=== PATIENT | male | born 1955 | race Caucasian/White ===

== ENCOUNTER 2017-03-08 14:28 | Inpatient (IN) | payer OTHER ==
--- NOTE | 2017-03-08 14:36 | CPEKG ---
Heart Rate: 62 RR Interval: 968 P-R Interval: 160 QRSD Interval: 100 QT Interval: 412 QTC Interval: 419 P [place]: 73 QRS [place]: 36 T Wave [place]: 33 EKG Severity - NORMAL ECG - EKG Impression: SINUS RHYTHM Electronically Signed By: María Meza 08-Mar-2017 18:41:41
--- NOTE | 2017-03-08 14:37 | EDPHY ---
H & P HPI/ROS: CHIEF COMPLAINT: Back and chest pain HISTORY OF PRESENT ILLNESS: The patient is a 61 y/o male complaining of severe waxing and waning acute back pain that is now radiating through to his chest. He has a history of an aortic dissection requiring emergency surgery in 2011, 5 years ago. This afternoon he was pulling weeds and developed sudden back pain. He attributed it to pulling a muscle initially, but it didn't improve with rest. When the pain started to move to his chest he decided to come to the ED as the pain feels similar to his prior aortic dissection. He denies weakness or numbness in any limbs. REVIEW OF SYSTEMS: A ten point review of systems was performed and is negative with the exception of the items mentioned in the HPI. Past medical history: Aortic dissection, ruptured appendicitis Past surgical history: Emergent aortic repair for dissection with repair of bicuspid aortic valve, large bowel resection following peritonitis from ruptured appendix, appendectomy Family history: noncontributory Social history: 1/2 pack per day cigarette smoker. Couple cocktails every night. No PCP. Takes care of grounds at [facility] Appearance: Alert. Uncomfortable appearing. Vital signs reviewed. 196 /96 right arm, 210/75 left arm Eyes: Pupils equal and round, no conjunctival injection, no discharge. Anicteric. ENT, Mouth: Mucous membranes are moist, no oropharyngeal erythema or edema. Neck: No lymphadenopathy, supple. No JVD. Respiratory: Lungs are clear to auscultation; no wheezes, rales, or rhonchi. Cardiovascular: Regular rate and rhythm; no murmur, rub, or gallop. Pulses: 2+ peripheral pulses (radial and femoral bilaterally. Gastrointestinal: Abdomen is soft and nontender, no masses or organomegaly, bowel sounds normal. Skin: Warm and dry, no rashes on exposed skin, normal color. Back: Nontender to palpation over the thoracolumbar spine. No CVAT. Extremities: No lower extremity edema, no calf tenderness or swelling. Neurological: Alert and oriented. Moving all four extremities easily and equally. Psychiatric: Normal affect. Constitutional: Initial Vital Signs Temperature (C) 36.5 C 03/08/17 14:38 Heart Rate 64 03/08/17 14:38 Respiratory Rate 16 03/08/17 14:38 Blood Pressure 196/96 H 03/08/17 14:38 O2 Sat (%) 100 03/08/17 14:38 O2 Delivery Mode Nasal Cannula O2 (L/minute) 2 Allergies/Adverse Reactions: No Known Allergies Allergy (Verified 01/12/12 21:31) Home Medications: Medication Instructions Recorded Herbals/Supplements -Info Only 1 each PO AD 01/13/12 Aspirin [Aspirin 81mg (*)] 81 mg PO DAILY 03/08/17 Ibuprofen [Motrin (*)] 200 - 600 mg PO Q6H PRN 03/08/17 Naproxen Sodium [Aleve 220 MG (*)] 220 mg PO DAILY PRN 03/08/17 Medical Decision Making - Diagnostics EKG Interpretation: EKG interpreted by me in [facility]. LVH, no acute ischemic changes, sinus. Imaging Results: Imaging Impressions Chest/Thorax CTA 03/08/17 14:48 Impression: 1. No pulmonary embolism. 2. Repeat dissection of the proximal descending thoracic aorta, now contributing to contrast opacification of the false lumen, nearly to the same extent as that of the true lumen. 3. Dissection now involves the entire abdominal and pelvic aorta, and extends on the right into the external iliac artery, on the left at least into the common iliac artery. 4. Dissection extends into the main right renal artery. 5. Left renal artery, SMA, and celiac trunk come off of the false lumen. 6. Accessory right renal artery and ANAY come off of both the true and the false lumen. 7. Increase in diameter of the proximal descending thoracic aorta and transverse the aortic arch. No aneurysmal dilatation of the abdominal and pelvic aorta at this time. 8. Dissection traverses across all 3 major vessels of the thoracic aortic arch without going directly into the branch vessels. This is unchanged from the prior study. Findings and recommendations discussed with Dr. María Meza at 1528 hours on March 08, 2017. Final report concurs with initial preliminary interpretation. Imaging: Discussed imaging studies w/ call or contact centre manager Radiologist, I viewed and interpreted images myself ED Course/Re-evaluation: IV established. Labs drawn. Patient placed on monitoring tech. CTA chest ordered despite creatinine of 1.5 given high risk for aortic dissection in this patient. Other diagnositic considerations at the time of his presentation include ACS, PE, pneumonia, pericarditis. 4mg IV morphine administered for pain. The 12 lead EKG was interpreted by myself. See hard copy and/or "tracemaster" electronic copy for interpretation. CTA reported to me by Dr. Clifton. I have reviewed the images. There is repeat dissection of proximal descending aorta with contrast filling the false lumen more than the true lumen. Dissection now involves entire abdominal and pelvic aorta. See CTA report for full details. Patient has been hypertensive since arrival. I spoke with Dr. Jiménez, CT surgery, about this patient's Type B aortic dissection. At this point in time he recommends BP control. Esmolol IV drip being titrated. HR has been in the 70s. Patient is receiving IV morphine for pain control, with some relief. He is being admitted to the ICU for BP control and additional treatment as needed. General Assignment Reporter on duty in ICU, Dr. Mc, aware. Hospitalist admitting. I spoke with Dr. Gasca about this patient. With esmolol, SBP still 180s--aiming for SBP closer to 120. Will continue to titrate. May need to add second agent. Patient underwent serial and frequent exams while in ED. Critical Care Time: This patient received one hour of critical care for type B aortic dissection and hypertensive emergency. He was at risk of vascular catastrophe, end organ damage secondary to hypertension. There was no midlevel involved in his care and no bedside procedures were performed. His care includes discussions with consultants, review of past records, review of labs and radiographic and other studies. - Data Points Laboratory Results: Laboratory Results 03/08/17 14:36 03/08/17 14:36 03/08/17 03/08/17 03/08/17 14:36 14:36 14:33 WBC 10.43 10^3/uL H 10^3/uL (3.80-9.50) RBC 4.22 10^6/uL L 10^6/uL (4.40-6.38) Hgb 14.9 g/dL g/dL (13.7-17.5) POC Hgb 15.3 gm/dL gm/dL (13.7-17.5) Hct 40.9 % % (40.0-51.0) POC Hct 45 % % (40-51) MCV 96.9 fL fL (81.5-99.8) MCH 35.3 pg H pg (27.9-34.1) MCHC 36.4 g/dL g/dL (32.4-36.7) RDW 12.9 % % (11.5-15.2) Plt Count 247 10^3/uL 10^3/uL (150-400) MPV 9.0 fL fL (8.7-11.7) Neut % (Auto) 71.9 % % (39.3-74.2) Lymph % (Auto) 18.9 % % (15.0-45.0) [place] % (Auto) 7.6 % % (4.5-13.0) Eos % (Auto) 0.7 % % (0.6-7.6) Baso % (Auto) 0.6 % % (0.3-1.7) Nucleat RBC Rel Count 0.0 % % (0.0-0.2) Absolute Neuts (auto) 7.51 10^3/uL H 10^3/uL (1.70-6.50) Absolute Lymphs (auto) 1.97 10^3/uL 10^3/uL (1.00-3.00) Absolute Monos (auto) 0.79 10^3/uL 10^3/uL (0.30-0.80) Absolute Eos (auto) 0.07 10^3/uL 10^3/uL (0.03-0.40) Absolute Basos (auto) 0.06 10^3/uL 10^3/uL (0.02-0.10) Absolute Nucleated RBC 0.00 10^3/uL 10^3/uL (0-0.01) Immature Gran % 0.3 % % (0.0-1.1) Immature Gran # 0.03 10^3/uL 10^3/uL (0.00-0.10) POC Sodium 141 mEq/L mEq/L (134-144) Sodium 135 mEq/L mEq/L (134-144) POC Potassium 3.1 mEq/L L mEq/L (3.3-5.0) Potassium 3.4 mEq/L L mEq/L (3.5-5.2) POC Chloride 104 mEq/L mEq/L (97-110) Chloride 104 mEq/L mEq/L (97-110) Carbon Dioxide 21 mEq/l L mEq/l (22-31) Anion Gap 10 mEq/L mEq/L (8-16) POC BUN 26 mg/dL H mg/dL (7-23) BUN 26 mg/dL H mg/dL (7-23) Creatinine 1.5 mg/dL H mg/dL (0.7-1.3) POC Creatinine 1.5 mg/dL H mg/dL (0.7-1.3) Estimated GFR 48 Glucose 102 mg/dL H mg/dL (70-100) POC Glucose 107 mg/dL H mg/dL (70-100) Calcium 10.0 mg/dL mg/dL (8.5-10.4) Troponin I < 0.012 ng/mL ng/mL (0.000-0.034) Medications Given: Esmolol HCl/Sodium Chloride (Brevibloc 10 Mg/Ml Premix) 250 mls @ 0 mls/hr IV CONT YSABEL; Titrate PRN Reason: Protocol Stop: 09/04/17 15:44 Last Admin: 03/08/17 19:00 Dose: 250 mls Ondansetron HCl (Zofran) 4 mg IVP Q4 PRN PRN Reason: Nausea/Vomiting, Can't Take PO Stop: 09/04/17 18:23 Last Admin: 03/08/17 18:39 Dose: 4 mg Discontinued Medications Morphine Sulfate (Morphine) 4 mg IVP EDNOW ONE Stop: 03/08/17 15:00 Last Admin: 03/08/17 15:03 Dose: 4 mg Morphine Sulfate (Morphine) 4 mg IVP EDNOW ONE Stop: 03/08/17 15:47 Last Admin: 03/08/17 15:50 Dose: 4 mg Morphine Sulfate (Morphine) 4 mg IVP EDNOW ONE Stop: 03/08/17 16:25 Last Admin: 03/08/17 16:32 Dose: 4 mg Morphine Sulfate (Morphine) 4 mg IVP EDNOW ONE Stop: 03/08/17 16:57 Last Admin: 03/08/17 17:01 Dose: 4 mg Morphine Sulfate (Morphine) 2 mg IVP ONCE ONE Stop: 03/08/17 17:46 Last Admin: 03/08/17 18:06 Dose: 2 mg Point of Care Test Results: 03/08/17 14:33 POC Sodium 141 POC Potassium 3.1 L POC Chloride 104 POC BUN 26 H POC Creatinine 1.5 H POC Glucose 107 H Departure - Departure Disposition: [facility] Inpatient Acute Clinical Impression: Hypertensive emergency, aortic dissection type b Condition: Critical Report Scribed for: María Meza Report Scribed by: Ana Hong Date of Report: 03/08/17 Time of Report: 14:56 Physician Review and Approval Statement: 03/08/17 14:37 Portions of this note were transcribed by the associate medical director. I, Dr. María Meza, personally performed the history, physical exam, and medical decision- making; and confirmed the accuracy of the information in the transcribed note.
[2017-03-08] MEDS ORDERED: IOPAMIDOL (ISOVUE 370) 100 ML BTL IV ONE (14:49)
[2017-03-08 15:20] LABS: % IMMATURE GRANULYOCYTES 0.3 % (0.0-1.1); ABSOLUTE IMMATURE GRANULOCYTES 0.03 10^3/uL (0.00-0.10); ADD DIFF? NO; ADD MORPH? NO; ADD SCAN? NO; ATYPICAL LYMPHOCYTE FLAG 0 (0-99); FRAGMENT RBC FLAG 0 (0-99); HEMATOCRIT 40.9 % (40.0-51.0); HEMOGLOBIN 14.9 g/dL (13.7-17.5); LEFT SHIFT FLG 0 (0-99); LIPEMIA HEMOLYSIS FLAG 90 (0-99); MEAN CELL HEMOGLOBIN 35.3 pg (27.9-34.1); MEAN CELL HEMOGLOBIN CONCENTR. 36.4 g/dL (32.4-36.7); MEAN CELL VOLUME 96.9 fL (81.5-99.8); PLATELET CLUMPS FLAG 10 (0-99); PLATELET COUNT 247 10^3/uL (150-400); RED BLOOD CELL COUNT 4.22 10^6/uL (4.40-6.38); RED CELL DISTRIBUTION WIDTH 12.9 % (11.5-15.2)
[2017-03-08 15:27] LABS: ANION GAP 10 mEq/L (8-16); CARBON DIOXIDE 21 mEq/l (22-31); CHLORIDE 104 mEq/L (97-110); CREATININE 1.5 mg/dL (0.7-1.3); GLOMERULAR FILTRATION RATE 48; GLUCOSE 102 mg/dL (70-100); POTASSIUM 3.4 mEq/L (3.5-5.2); SODIUM 135 mEq/L (134-144)
[2017-03-08 15:38] LABS: TROPONIN I < 0.012 ng/mL (0.000-0.034)
[2017-03-08] MEDS: ESMOLOL/NACL 250 ML IV SCH ×4 (16:32→23:32)
[2017-03-08] MEDS ORDERED: NITROPRUSSIDE SODIUM 50 MG in D5W 250 ML IV SCH (17:30)
[2017-03-08] MEDS ORDERED: ONDANSETRON 4 MG/2 ML VIAL ONE (18:00)
[2017-03-08] MEDS: ONDANSETRON 4 MG/2 ML VIAL IVP PRN (18:39)
--- NOTE | 2017-03-08 18:55 | GHP ---
[f rep st] HISTORY AND PHYSICAL DATE OF ADMISSION: 03/08/2017 CHIEF COMPLAINT: Chest and back pain. HISTORY OF PRESENT ILLNESS: This is a 61-year-old male, with history of type A aortic dissection in 2011, status post emergent interposition supracoronary artery graft repair of an acute type A aortic dissection, and 25 mm Ultra porcine bioprosthetic aortic valve replacement by Dr. Walsh in 2011, do ne at [facility]. The patient presented to the emergency department today with acute onset of chest pain described as a 5/10, dull, constant, burning, ache in the middle of his chest th at radiated to his back and "his loins." It was associated with some shortness of breath. The patie nt does smoke. He appears to have been discharged from [facility] on January of 2012 on metoprolol, but tells me he has not been taking any blood pressure medications. PAST MEDICAL HISTORY: 1. Acute type A aortic dissection and repair of a bicuspid aortic valve by Dr. Walsh in 2011. 2. 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 HOME MEDICATIONS: Reviewed. Refer to [facility] for details. ALLERGIES: No known drug allergies. SOCIAL HISTORY: The patient smokes half a pack a day. He drinks alcohol occasionally. FAMILY HISTORY: Reviewed and noncontributory. REVIEW OF SYSTEMS: Comprehensive 10-point review of systems was done and is negative except for as m entioned in the HPI. PHYSICAL EXAMINATION: VITAL SIGNS: Blood pressure on initial presentation was 196/96, blood pressur e currently 159/62, heart rate 68, respiratory rate 14, O2 saturation 95% on 2 L. Temperature afebri le. GENERAL: No acute distress. HEAD: Normocephalic, atraumatic. EYES: PERRLA. Sclerae anicter ic. MOUTH: Moist mucous membranes. NECK: Supple. No lymphadenopathy. CARDIOVASCULAR: S1-S2. N o JVD. No lower extremity edema. PULMONARY: Lungs are clear. No wheezes, rales, or rhonchi. ABDO MEN: Soft, nontender, nondistended. No guarding or rebound tenderness. Normoactive bowel sounds. EXTREMITIES: No clubbing or cyanosis. Feet are slightly cool to touch. NEURO: Cranial nerves 2-12 grossly intact. No focal motor or sensory deficits. SKIN: Clear. No rashes. DIAGNOSTICS: CT angio of the chest, which I reviewed, shows a type B dissection of the proximal desc ending thoracic aorta with dissection involving the entire abdominal and pelvic aorta, extends on the right into the external iliac artery on the left, at least into the common iliac artery, the left re nal artery, SMA, celiac trunk, off the false lumen. The dissection extends into the right main renal artery. Please refer to report for full details. WBC is 10.43, hemoglobin 14.9, hematocrit 40.9, platelets 247. Sodium 135, potassium 3.4, chloride 1 04, CO2 21, BUN 26, creatinine 1.5, glucose 102, calcium 10. Troponin was less than 0.012. EKG, which I visualized and personally interpreted, shows sinus rhythm, rate 62 beats per minute, cortney e high voltages consistent with likely underlying LVH. ASSESSMENT: This is a 61-year-old male, with history of type A aortic dissection, status post repair in 2011, presenting with: 1. Type B repeat dissection of the proximal descending thoracic aorta. 2. Hypertensive emergency. 3. Acute kidney injury, which is concerning given the patient's compromised vascular supply of the k idney given above in the setting of recent contrast load. 4. History of tobacco use. 5. Mild hypokalemia. PLAN: 1. I discussed the case with the on-call cardiothoracic surgeon, Dr. Jiménez, who has reviewed the chandrika allen's imaging and does not believe him to be a good surgical candidate. He has recommended medical management. See below. 2. The patient will be admitted to the intensive care unit where we will treat his hypertension with esmolol drip and nitroprusside drip to a goal of systolic blood pressure of around 120 and a heart r ate of around 60. 3. Pain control with morphine as needed. 4. Monitor renal function. 5. Tobacco cessation. 6. We will add a lipid panel for the morning. 7. The patient requests to be full code status. Dr. Jiménez will see the patient in the morning for formal consultation. I also have a call in to Dr. 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 /[id number]/MODL
[2017-03-08] MEDS: POTASSIUM Cl (KCl) 20 MEQ in 1/2 NS 1,000 ML IV SCH (19:03)
[2017-03-08] MEDS: PROMETHAZINE HCL 25 MG/ML INJ IVP PRN (19:21)
[2017-03-09 05:51] LABS: % IMMATURE GRANULYOCYTES 0.4 % (0.0-1.1); ABSOLUTE IMMATURE GRANULOCYTES 0.04 10^3/uL (0.00-0.10); ADD DIFF? NO; ADD MORPH? NO; ADD SCAN? NO; ATYPICAL LYMPHOCYTE FLAG 0 (0-99); FRAGMENT RBC FLAG 0 (0-99); HEMOGLOBIN 12.3 g/dL (13.7-17.5); LEFT SHIFT FLG 0 (0-99); LIPEMIA HEMOLYSIS FLAG 90 (0-99); MEAN CELL HEMOGLOBIN 35.2 pg (27.9-34.1); MEAN CELL HEMOGLOBIN CONCENTR. 35.1 g/dL (32.4-36.7); MEAN CELL VOLUME 100.3 fL (81.5-99.8); MEAN PLATELET VOLUME 9.3 fL (8.7-11.7); PLATELET CLUMPS FLAG 20 (0-99); PLATELET COUNT 172 10^3/uL (150-400); RED BLOOD CELL COUNT 3.49 10^6/uL (4.40-6.38); RED CELL DISTRIBUTION WIDTH 13.2 % (11.5-15.2)
[2017-03-09] MEDS: POTASSIUM Cl (KCl) 20 MEQ in 1/2 NS 1,000 ML IV SCH (05:52)
[2017-03-09 07:20] LABS: ALANINE AMINOTRANSFERASE 29 IU/L (21-72); ALBUMIN 2.8 g/dL (3.5-5.0); ALKALINE PHOSPHATASE 39 IU/L (38-126); ANION GAP 5 mEq/L (8-16); ASPARTATE AMINOTRANSFERASE 22 IU/L (17-59); BILIRUBIN,TOTAL 0.9 mg/dL (0.1-1.4); CARBON DIOXIDE 20 mEq/l (22-31); CHLORIDE 107 mEq/L (97-110); CREATININE 1.3 mg/dL (0.7-1.3); GLOMERULAR FILTRATION RATE 57; GLUCOSE 97 mg/dL (70-100); POTASSIUM 4.2 mEq/L (3.5-5.2); SODIUM 132 mEq/L (134-144); TOTAL PROTEIN 5.5 g/dL (6.3-8.2)
[2017-03-09] MEDS ORDERED: METOPROLOL TARTRATE 25 MG TAB PO SCH (09:15)
[2017-03-09] MEDS: PROMETHAZINE HCL 25 MG/ML INJ IVP PRN (09:48)
--- NOTE | 2017-03-09 09:48 | GCON ---
[f rep st] CONSULTATION DATE OF CONSULTATION: 03/08/2017 HISTORY OF PRESENT ILLNESS: The patient is a 61-year-old male with a history of a type A aortic diss ection in January of 2012 that required surgical graft placement, as well as aortic valve replacement for a bicuspid valve. He did fairly well during that initial surgery, although there was some postop erative bleeding that required return to the OR. He subsequently left the hospital after about 7 day s and has not had significant followup since that time, including lack of medications. Today, he was at work and had sudden onset of tearing pain in his back, thought it was some muscle spasm, but when he discussed it with his , they decided to come to the emergency room. There, he was found to h ave a very large type B descending aortic dissection running all the way down to the external iliac a rteries, with a fairly large false lumen and also involving the renal arteries. In the emergency dep artment, he was given 16 mg of morphine over a 2-hour period in 4 mg increments, which did reduce his pain from about an 8/10 to a 5/10 by the time he arrived in the emergency department. He was starte d on an esmolol drip but was markedly hypertensive on arrival in the ICU, was given additional morphi ne, as well as a Nipride drip for better blood pressure control. There was 1 episode of emesis while in the ICU. He was given Zofran for this at the time of my exam. REVIEW OF SYSTEMS: Otherwise negative. PAST MEDICAL HISTORY: Includes: 1. The dissection, as described above. 2. An episode of peritonitis many years ago related to a ruptured appendix. 3. 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 4. Postoperative bleeding, as described above. PAST SURGICAL HISTORY: Includes a remote bowel resection, appendectomy, dissection repair, aortic va lve replacement. SOCIAL HISTORY: Continues to smoke at a low level, with occasional alcohol but no alcohol-related il lnesses. FAMILY HISTORY: Noncontributory. MEDICATIONS: In the ICU include esmolol, morphine, Zofran, and Nipride. PHYSICAL EXAMINATION: VITAL SIGNS: He was initially found to have a blood pressure of 210/75, with a heart rate of about 65, respirations 14, oxygen saturation 99% on 2 L. GENERAL: He was awake, salome rt, in no apparent distress, able to speak in full sentences without using accessory muscles for fer thing. HEENT: Pupils were equally round, reactive to light, nonicteric and noninjected. Mucous mem branes were moist, without erythema or exudate. NECK: Supple, without adenopathy or jugular vein di stention. LUNGS: Breath sounds were distant, but clear to auscultation bilaterally, without wheezes , rubs or rales. HEART: Regular rate and rhythm, with a 2/6 systolic ejection murmur. ABDOMEN: Fi rm, but soft, nontender, nondistended, with no guarding, no rebound. Hypoactive bowel tones. EXTREM ITIES: No clubbing, cyanosis, or edema, and his toes and fingers were warm and dry, with no evidence of cyanosis or ischemia. NEUROLOGIC: Nonfocal, including cranial nerves, deep tendon reflexes. SK IN: Warm and dry, without evidence of rash. LABORATORY DATA: Includes a white count of 10.4, hematocrit of 40.9, platelets of 247. Basic metabo lic panel shows sodium of 135, with a potassium of 3.4, chloride 104, BUN 26, creatinine 1.5, glucose 102. Troponin was negative. ASSESSMENT/PLAN: 1. Type B descending aortic dissection, which appears to be acute on chronic, possibly related to me dical noncompliance. Dr. Yen Jiménez from CT Surgery has been notified of this and will see the reddy ent in the morning. Currently, the major focus of attention is on improved blood pressure control, a nd the Nipride drip was just recently started. We will continue also with pain control, using morphi ne. He may need a PROGRAM DIRECTOR CABLE TELEVISION for better control. We will have to watch for over sedation. 2. Acute kidney injury. His creatinine at 1.5, although not terribly high in and of itself, does re present a substantial change from his baseline at 0.9, in addition to the fact that he is not a very large man, and I think there is great concern here. A Ricketts catheter should be placed. IV fluids sh ould be begun and close observation of urinary output. 3. Hypertension, as described above, using the esmolol drip. Nipride is an additional agent that may be useful. A total of 35 minutes of critical care time was required for this patient with serious illness, with incredible risk for morbidity and mortality. /[id number]/MODL
[2017-03-09] MEDS ORDERED: BISACODYL 10 MG SUPP PR PRN (11:56)
[2017-03-09] MEDS ORDERED: LACTULOSE 20 GM/30 ML UDCUP PO PRN (11:56)
[2017-03-09] MEDS ORDERED: POLYETHYLENE GLYCOL 3350 17 GM PKT PO PRN (11:56)
[2017-03-09] MEDS ORDERED: MAGNESIUM HYDROXIDE 30 ML UDCUP PO PRN (11:56)
--- NOTE | 2017-03-09 13:45 | PDINTPN ---
Team Otr Truck Driver Progress Note Assessment/Plan: Assessment/plan: 61 M with type A aortic dissection in 2012 treated with tissue AVR for bicuspid valve and ascending aortic graft. He had poor followup and no meds then developed sudden onset CP so came to ED at insistence of family and found to have type B descending aortic dissection involving renal arteries. He was initially started on an esmolol drip followed by nipride to control BP. He was given 16 mg IV morphine in the ED over 2 hours with minimal effect on pain control, but eventually this was achieved. * Aortic dissection- he seems anxious for dc and mildly unrealistic about the seriousness of the situation. We discussed this at bedside today at length with Dr. Preciado as well. Started metoprolol at 25 bid to start and plan to maximize this before adding additional agents. No surgical intervention required. Pain control is adequate * HTN- as described above * CAROLYN- improved creatinine overnight * Subjective: stable overnight with improved pain control and BP control. Esmolol dc'd since bp goal met. Objective: Vital Signs Temp Pulse Resp BP Pulse Ox 37.1 C 72 14 124/62 H 93 03/08/17 20:00 03/09/17 12:00 03/09/17 12:00 03/09/17 12:00 03/09/17 12:00 Laboratory Results 03/09/17 05:30 03/09/17 05:30 03/08/17 03/09/17 03/10/17 05:59 05:59 05:59 Intake Total 2392 960 Output Total 260 375 Balance 2132 585 Physical Exam - Physical Exam General Appearance: WD/WN, alert, no apparent distress EENT: PERRL/EOMI Neck: supple Respiratory: lungs clear, normal breath sounds, No respiratory distress Cardiac/Chest: regular rate, rhythm, No edema Abdomen: non-tender, soft, No distended Skin: normal color, warm/dry Lymphatic: no adenopathy Extremities: No pedal edema Neuro/Psych: alert, normal mood/affect, oriented x 3 ICD10 Worksheet Patient Problems: Problems Problem Status Onset Hypertensive emergency Acute Dissection of thoracic aorta Active Replacement of aortic valve Active
[2017-03-09] MEDS: NS 1,000 ML IV SCH ×2 (13:47→19:49)
[2017-03-09] MEDS: hydrALAZINE 20 MG/ML VIAL IVP PRN ×2 (13:47→20:10)
--- NOTE | 2017-03-09 14:14 | GCON ---
[f rep st] CONSULTATION INITIAL CONSULTATION DATE OF CONSULTATION: 03/09/2017 CONSULTING SERVICE: Cardiothoracic Surgery. REASON FOR CONSULTATION: Type B aortic dissection. 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 He did well after that; however, he was lost to [facility] and did not visit any physicians in the interim. He presented to the emergency department ye ster afternoon after being outside doing gardening work and having some mild chest pain and discom fort. Initially, he thought this was related to a muscle pull and, therefore, tried different maneuv ers to try and relieve the pain, but when this did not accomplish anything he presented to the emerge ncy department. He says the pain was in the middle of his chest, but mostly on the back side between his shoulder blades and extending down toward the abdomen. Given his complaints, he did undergo a C T scan of the chest which revealed an extensive type B aortic dissection. This was compared to his p revious scans in 2011, at which time he was noted to have a proximal descending thoracic aortic disse ction; however, this did have significant progression and this portion of the aorta did have some marlin nges in character of the dissection. On presentation, his blood pressure was anywhere from 190 to ov er 200 systolic. He was admitted to the ICU afterward and started on blood pressure medications as w ell as anti-impulse therapy to bring down his blood pressure. Overnight, those medications were able to be weaned off. Currently, the patient notes that he feels better and has some mild discomfort, m ostly in the epigastric and lower chest region along the back side. Prior to this, he denies any oth er issues in terms of nausea, vomiting, fevers, chills, shortness of breath, or chest pain. He is a fairly active person, working outdoors constantly, and notes that he has never had any other issues. MEDICAL HISTORY: Denies. SURGICAL HISTORY: 1. Type A aortic dissection repair in 2011 with replacement of his aortic valve with a bioprosthetic valve. 2. Ruptured appendicitis treated with appendectomy and bowel resection. ALLERGIES: No known drug allergies. MEDICATIONS: Denies. SOCIAL HISTORY: The patient is a current everyday smoker and smokes anywhere from half pack to 1 pac k per day, and he has been doing this for the past 45 years. He does drink a fair amount of alcohol, roughly 3-4 drinks each evening with dinner. He is not . He works doing gardening work. FAMILY HISTORY: Noncontributory. REVIEW OF SYSTEMS: A 12-point review of systems is negative other than noted in the HPI. PHYSICAL EXAMINATION: GENERAL: The patient is awake, alert, and oriented x3. He is in no acute dis tress. HEENT: Normocephalic, atraumatic. No evidence of icterus. No JVD. No tracheal deviation. LUNGS: Clear to auscultation bilaterally. HEART: Regular rate and rhythm with a 3/6 murmur. ABDO MEN: Soft, nontender, nondistended. EXTREMITIES: Warm and well perfused, without any edema; he acuña s have 2+ equal radial pulses, as well as dorsalis pedis pulses. LABORATORY VALUES: CBC: WBC 10.48, hemoglobin 12.3, hematocrit 35.0, platelet count of 172. Chemis try: Sodium of 132, potassium 4.2, chloride 107, carbon dioxide 20, BUN 28, creatinine 1.3, which is down from 1.5 on admission yesterday, glucose 97, calcium 8.0. Total bilirubin 0.9, AST 22, ALT 29, alkaline phosphatase 39. Troponin less than 0.012. Total protein 5.5. Albumin 2.8. IMAGING STUDIES: CT scan of the chest, abdomen, and pelvis, which I have reviewed, shows no pulmonar y embolism. There is dissection of the proximal descending thoracic aorta with almost equal opacific ation of the true and the false lumen. The proximal descending thoracic aorta is enlarged at 4.5 cm versus 3.4 cm previously. The dissection begins just distal to the ascending aortic repair and exten ds distally all the way down into the right common iliac artery. There is good opacification with co ntrast of all mesenteric vessels, as well as the renal arteries. ASSESSMENT AND PLAN: The patient is a 61-year-old male who is status post emergent type A aortic dis section repair in 2011, who was lost to followup subsequent to that, but now presents with changes in his type B dissection. There is mild aneurysmal component of the proximal descending thoracic aorta ; however, this does not meet any surgical criteria at the current time. In addition, there is no co mpromise to his mesenteric vessels or renal arteries and, therefore, he should be treated medically f or this dissection. Medical therapy entails aggressive blood pressure and heart rate control, ideall y with a blood pressure around or less than 120 systolic, as well as a heart rate around 60 to 70 if possible. I would recommend transitioning to p.o. medications for blood pressure control. He will n eed continued medical management of this unless a complication were to arise in terms of poor distal perfusion of any of his major vessels as a result of this dissection. I did have an extensive discus coy with the patient, as well as 2 of his friends that were at the bedside and his sister over the p megan, and recommended that he need routine care with a physician, especially a primary care physician to ensure adequate blood pressure and heart rate control, especially given these new findings. In a ddition, he needs routine cardiology followup given his aortic valve replacement that he has, and thi s has not been done as of yet since his surgery in 2011. Lastly, I recommended if he is able to be t ransitioned to p.o. medications adequately, he may be able to be discharged in a few days' time once adequate blood pressure and heart rate control are achieved; however, he would need a repeat CT scan in about 1 month's time to ensure no significant changes in his dissection. Afterward, he would need periodic monitoring of this. For the current time, however, I would like to get an echocardiogram s mehdi he has not had one since his valve replacement, to ensure there are no issues with this, and the primary team will work on blood pressure control. /[id number]/MODL
--- NOTE | 2017-03-09 14:38 | ASMTCMCOM ---
CM Note CM Note Notes: Patient admitted for changes in his type B aortic dissection. He is being followed by cardiology who recommend medication changes (patient has historically been non-compliant). Patient is eager to d/c and has been cleared by Pt/OT. CM available for any discharge needs. Date Signed: 03/09/2017 02:38 PM Electronically Signed By:Reina Lyons RN
[2017-03-09] MEDS ORDERED: METOPROLOL TARTRATE 50 MG TAB PO SCH (15:15)
[2017-03-09] MEDS: oxyCODONE IR 5 MG TAB PO PRN ×3 (15:18→23:59)
--- NOTE | 2017-03-09 15:19 | HOSPPROG ---
Hospitalist Progress Note Assessment/Plan: * Aortic dissection - type B -medical management -needs aggressive BP control -goal HR 60-70, SPB < 120 -increase metoprolol -off drips - start prn IV hydralazine -likely need start alternative agent such as lisinopril * Previous ascending aortic aneurysm s/p surgical repair 2011 -new dissection starts just distal to previous graft repair -patient has not followed up with physicians since then * HTN emergency -likely due to non-compliance with outpatient follow-up -off drips, BP management as above * Bicuspid aortic valve s/p porcine AVR -f/u ECHO pending * ARF - continue IVF -per CT surgery renal arteries okay with good contrast seen * Short gut syndrome Subjective: Still with CP requiring IV morphine Objective: Vital Signs Temp Pulse Resp BP Pulse Ox 37.1 C 74 14 141/74 H 99 03/08/17 20:00 03/09/17 15:00 03/09/17 15:00 03/09/17 15:00 03/09/17 15:00 Laboratory Results 03/09/17 05:30 03/09/17 05:30 03/08/17 03/09/17 03/10/17 05:59 05:59 05:59 Intake Total 2392 960 Output Total 260 375 Balance 2132 585 Using frequent IV morphine for pain control Case d/w Dr. Mc regarding plan of care tele - NSR CTA reviewed - extensive descending acute dissection - Physical Exam Constitutional: no apparent distress, appears nourished, not in pain Cardiovascular: regular rate and rhythym, no murmur, rub, or gallop Respiratory: no respiratory distress, no rales or rhonchi, clear to auscultation Gastrointestinal: normoactive bowel sounds, soft, non-tender abdomen, no palpable masses Skin: no rashes or abrasions, no fluctuance, no induration Neurologic: AAOx3, sensation intact bilaterally Psychiatric: interacting appropriately, not anxious, not encephalopathic, thought process linear ICD10 Worksheet Patient Problems: Problems Problem Status Onset Hypertensive emergency Acute Dissection of thoracic aorta Active Replacement of aortic valve Active
--- NOTE | 2017-03-09 18:15 | ECHO ---
[email or web address] [address] [address] Main: [phone] Fax: Transthoracic Echocardiogram Name: ABDON JOHNSON MR#: [id number] Study Date: 03/09/2017 Study Time: 10:00 AM Date of : 1955 Age: 61 year(s) Height: 167.6 cm (66 in.) Weight: 70.31 kg (155 lb.) BSA: 1.79 m2 Gender: Male Examination: Echo Indication: prior type A dissection and hx AVR #25 Medtronic porcine bioprosthesis Image Quality: Adequate Contrast: Requested by: Pita Velazquez BP: 145 mmHg/71 mmHg Heart Rate: Rhythm: Normal sinus rhythm Indication: prior type A dissection and hx AVR #25 Medtronic porcine bioprosthesis Procedure Staff Burlap Man: Kaycee Albarran Reading Physician: Macy Irving Conclusions: Normal size left ventricle. Normal global systolic LV function (EF 63 %). All scored wall segments are normal. Mildly dilated right ventricle. Normal RV function. The left atrium is mildly to moderately dilated. The right atrium is moderately dilated. Mild mitral valve regurgitation is present. The aortic valve is a bioprosthesis. . This is a #25AVR Medtronic Ultra porcine bioprosthesis. There is mild to moderate eccentric aortic insufficiency. The leaflets are not well visualized. Prosthetic aortic valve gradients are within normal limits. Moderate tricuspid regurgitation is present. The pulmonary artery pressure is normal. There is dissection of the ascending aorta. Intimal flap noted in the ascending aorta, aortic arch and abdominal aorta. Compared with MONCHO of 01/2012 the aortic valve has been replaced. Possible dissection seen in ascending aorta Measurements: Chambers Valvular Assessment AV/MV Valvular Assessment TV/PV Normal Normal Normal Name Value Range Name Value Range Name Value Range IVSd (2D): 1.2 cm (0.6 cm-1.1 AV Vmax: 2.74 m/s (1 m/s-1.7 TR Vmax: 2.64 mm/s ( - ) cm) m/s) TR PGmax: 28 mmHg ( - ) LVDd (2D): 4.4 cm (4.2 cm-5.9 AV maxP mmHg ( - ) syst. PAP: 38 mmHg ( - ) cm) AV meanP mmHg ( - ) PV Vmax: 0.86 cm/s (0.6 m/s-0.9 LVDs (2D): 2.6 cm (2.1 cm-4 AR (PHT): 523 ms ( - ) m/s) cm) MV E Vmax: 0.58 cm/s ( - ) PV PGmax: 3 mmHg ( - ) LVPWd (2D): 1.0 cm (0.6 cm-1 MV A Vmax: 0.71 cm/s ( - ) cm) MV E/A: 0.82 ( - ) Patient: ABDON JOHNSON Study Date: 03/09/2017 Page 1 of 3 10:00 AM LVEF (BP): 63 % (>=55 %) RVDd(2D): 4.2 cm (1.9 cm-3.8 cmmm) Continued Measurements: Chambers Valvular Assessment AV/MV Valvular Assessment TV/PV Name Value Name Value Name Value LA Area: 21.0 cm2 MV DecTime: 236 CVP (est.): 10 LA Volume: 78 ml MV E' Septal: 0.09 m/s LA Volume Index: 43.6 ml/m2 MV E/E' Septal: 6.60 TAPSE: 2.6 cm MV E/E' Lateral: 5.80 RA Area: 20.0 cm2 AR Vmax: 4.54 cm/s Additional Vessels Name Value Ao Ascendin.4 cm Findings: Left Ventricle: Normal size left ventricle. Normal global systolic LV function (EF 63 %). All scored wall segments are normal. Right Ventricle: Mildly dilated right ventricle. Normal RV function. Left Atrium: The left atrium is mildly to moderately dilated. Right Atrium: The right atrium is moderately dilated. Mitral Valve: There is mild thickening of the mitral valve leaflets. Mild mitral valve regurgitation is present. Aortic Valve: The aortic valve is a bioprosthesis. . This is a #25AVR Medtronic Ultra porcine bioprosthesis. There is mild to moderate eccentric aortic insufficiency. The leaflets are not well visualized.Prosthetic aortic valve gradients are within normal limits. Tricuspid Valve: The tricuspid valve is normal in appearance and function. Moderate tricuspid regurgitation is present. The pulmonary artery pressure is normal. Pulmonic Valve: The pulmonic valve is normal in appearance and function. Trivial pulmonic valve regurgitation. Aorta: There is dissection of the ascending aorta. Intimal flap noted in the ascending aorta, aortic arch and abdominal aorta. Pericardium: No pericardial effusion. (No Signature Object) Wall Motion Scores Patient: ABDON JOHNSON Study Date: 03/09/2017 Page 2 of 3 10:00 AM Patient: ABDON JOHNSON Study Date: 03/09/2017 Page 3 of 3 10:00 AM [id number]
[2017-03-09] MEDS: SENNOSIDES/DOCUSATE SODIUM TAB PO SCH (19:25)
[2017-03-09] MEDS ORDERED: METOPROLOL TARTRATE 25 MG TAB PO ONE (22:27)
[2017-03-09] MEDS: ACETAMINOPHEN 325 MG TAB PO PRN (23:59)
[2017-03-10] MEDS: hydrALAZINE 20 MG/ML VIAL IVP PRN (03:31)
[2017-03-10 04:16] LABS: % IMMATURE GRANULYOCYTES 0.4 % (0.0-1.1); ABSOLUTE IMMATURE GRANULOCYTES 0.04 10^3/uL (0.00-0.10); ADD DIFF? NO; ADD MORPH? NO; ADD SCAN? NO; ATYPICAL LYMPHOCYTE FLAG 0 (0-99); FRAGMENT RBC FLAG 0 (0-99); HEMATOCRIT 40.2 % (40.0-51.0); HEMOGLOBIN 13.8 g/dL (13.7-17.5); LEFT SHIFT FLG 0 (0-99); LIPEMIA HEMOLYSIS FLAG 90 (0-99); MEAN CELL HEMOGLOBIN 35.2 pg (27.9-34.1); MEAN CELL HEMOGLOBIN CONCENTR. 34.3 g/dL (32.4-36.7); MEAN CELL VOLUME 102.6 fL (81.5-99.8); PLATELET CLUMPS FLAG 0 (0-99); PLATELET COUNT 179 10^3/uL (150-400); RED BLOOD CELL COUNT 3.92 10^6/uL (4.40-6.38); RED CELL DISTRIBUTION WIDTH 13.3 % (11.5-15.2)
[2017-03-10 04:44] LABS: ANION GAP 8 mEq/L (8-16); CALCIUM 8.6 mg/dL (8.5-10.4); CARBON DIOXIDE 20 mEq/l (22-31); CHLORIDE 108 mEq/L (97-110); CREATININE 1.1 mg/dL (0.7-1.3); GLOMERULAR FILTRATION RATE > 60; GLUCOSE 82 mg/dL (70-100); POTASSIUM 3.6 mEq/L (3.5-5.2); SODIUM 136 mEq/L (134-144)
[2017-03-10] MEDS: ACETAMINOPHEN 325 MG TAB PO PRN (06:59)
[2017-03-10] MEDS: oxyCODONE IR 5 MG TAB PO PRN ×4 (06:59→21:22)
[2017-03-10] MEDS: METOPROLOL TARTRATE 50 MG TAB PO SCH ×2 (09:07→20:28)
[2017-03-10] MEDS: SENNOSIDES/DOCUSATE SODIUM TAB PO SCH ×2 (09:07→20:28)
--- NOTE | 2017-03-10 09:56 | HOSPPROG ---
Hospitalist Progress Note Assessment/Plan: # type B aortic dissection - non-surgical per CT surgery - aggressive BP control (SBP<120, HR 60-17) and tobacco cessation - cont metop 75 bid, start norvasc today - cont hydralazine IV prn # previous asc aortic dissection s/p surgical repair in 2011 - no medical f/u since then # htn emergency - off gtt's, transitioning to PO meds # bicuspid aortic valve s/p porcine AVR -f/u ECHO pending # CAROLYN - resolved, no renal artery compromise # short gut syndrome Subjective: chest pain better Objective: Vital Signs Temp Pulse Resp BP Pulse Ox 37 C 72 16 125/71 H 95 03/10/17 07:00 03/10/17 09:00 03/10/17 09:00 03/10/17 09:00 03/10/17 09:00 Laboratory Results 03/10/17 04:05 03/10/17 04:05 03/09/17 03/10/17 03/11/17 05:59 05:59 05:59 Intake Total 2392 3998 Output Total 260 1250 Balance [address] reviewed - Physical Exam Constitutional: no apparent distress, appears nourished Cardiovascular: regular rate and rhythym, systolic murmur Respiratory: no respiratory distress, no rales or rhonchi, clear to auscultation Gastrointestinal: normoactive bowel sounds, soft, non-tender abdomen, no palpable masses ICD10 Worksheet Patient Problems: Problems Problem Status Onset Hypertensive emergency Acute Dissection of thoracic aorta Active Replacement of aortic valve Active
[2017-03-10] MEDS: amLODIPine BESYLATE 5 MG TAB PO SCH (10:00)
[2017-03-10] MEDS ORDERED: ENALAPRILAT DIHYDRATE 1.25 MG/ML VIAL IVP PRN (11:22)
[2017-03-10] MEDS ORDERED: IOPAMIDOL (ISOVUE 370) 100 ML BTL IV ONE (12:45)
--- NOTE | 2017-03-10 13:38 | PDINTPN ---
Cleaning Maid Progress Note Assessment/Plan: Assessment/plan: 61 M with type A aortic dissection in 2011 treated with tissue AVR for bicuspid valve and ascending aortic graft. He had poor followup and no meds then developed sudden onset CP so came to ED at insistence of family and found to have type B descending aortic dissection involving renal arteries. He was initially started on an esmolol drip followed by nipride to control BP. He was given 16 mg IV morphine in the ED over 2 hours with minimal effect on pain control, but eventually this was achieved. * Aortic dissection- type B. Started metoprolol 03/09 and uptitrated to 75 BID. Added Norvasc today, but would avoid hydralazine since it can increase shear stress. Repeat CT pending. * HTN- as described above * CAROLYN- improved creatinine overnight * OK for floor. DC soon? Subjective: feels well with much less pain Objective: Vital Signs Temp Pulse Resp BP Pulse Ox 37 C 72 16 125/71 H 95 03/10/17 07:00 03/10/17 09:00 03/10/17 09:00 03/10/17 09:00 03/10/17 09:00 Laboratory Results 03/10/17 04:05 03/10/17 04:05 03/09/17 03/10/17 03/11/17 05:59 05:59 05:59 Intake Total 2392 3998 Output Total 260 1250 Balance 2132 2748 Physical Exam - Physical Exam General Appearance: WD/WN, alert, no apparent distress EENT: PERRL/EOMI Neck: supple Respiratory: lungs clear, normal breath sounds, No respiratory distress Cardiac/Chest: regular rate, rhythm, No edema Abdomen: non-tender, soft, No pulsatile mass, No distended Skin: normal color, warm/dry Lymphatic: no adenopathy Extremities: No pedal edema Neuro/Psych: alert, normal mood/affect, oriented x 3 ICD10 Worksheet Patient Problems: Problems Problem Status Onset Hypertensive emergency Acute Dissection of thoracic aorta Active Replacement of aortic valve Active
[2017-03-10] MEDS: niCARdipine/NACL 200 ML IV SCH ×2 (15:57→20:27)
[2017-03-10] MEDS ORDERED: NS 1,000 ML IV SCH (16:30)
[2017-03-11] MEDS: oxyCODONE IR 5 MG TAB PO PRN ×4 (02:15→22:33)
[2017-03-11 07:46] LABS: ANION GAP 8 mEq/L (8-16); CALCIUM 8.7 mg/dL (8.5-10.4); CARBON DIOXIDE 24 mEq/l (22-31); CHLORIDE 104 mEq/L (97-110); CREATININE 0.9 mg/dL (0.7-1.3); GLOMERULAR FILTRATION RATE > 60; GLUCOSE 90 mg/dL (70-100); POTASSIUM 3.7 mEq/L (3.5-5.2); SODIUM 136 mEq/L (134-144)
[2017-03-11] MEDS: amLODIPine BESYLATE 5 MG TAB PO SCH (08:41)
[2017-03-11] MEDS: ONDANSETRON 4 MG/2 ML VIAL IVP PRN ×3 (08:41→21:32)
[2017-03-11] MEDS: SENNOSIDES/DOCUSATE SODIUM TAB PO SCH ×2 (08:42→21:14)
[2017-03-11] MEDS: METOPROLOL TARTRATE 50 MG TAB PO SCH ×2 (08:42→21:14)
--- NOTE | 2017-03-11 11:12 | HOSPPROG ---
Hospitalist Progress Note Assessment/Plan: # type B aortic dissection - medical management recommended by Dr Clifton and Hank - aggressive BP control (SBP<120, HR 60-17) and tobacco cessation - cont metop 75 bid, increase norvasc today, attempt to wean cardene - concern for R renal artery being perfused off false lumen with decreased enhancement today # previous asc aortic dissection s/p surgical repair in 2011 - no medical f/u since then # htn emergency - wean cardene as needed # bicuspid aortic valve s/p porcine AVR - echo with mild/mod eccentric aortic valve insufficiency with normal gradients # CAROLYN - resolved - follow closely with renal artery compromise # short gut syndrome Subjective: had worsening pain yesterday - better today Objective: Vital Signs Temp Pulse Resp BP Pulse Ox 36.8 C 63 22 H 120/76 92 03/11/17 07:00 03/11/17 09:00 03/11/17 09:00 03/11/17 09:00 03/11/17 05:00 Laboratory Results 03/10/17 04:05 03/11/17 06:45 03/10/17 03/11/17 03/12/17 05:59 05:59 05:59 Intake Total 3998 496 Output Total 1250 1000 Balance 2748 -504 high risk diagnosis - Physical Exam Constitutional: no apparent distress, appears nourished Cardiovascular: regular rate and rhythym, systolic murmur, No irregularly irregular, No diastolic murmur Respiratory: no respiratory distress, no rales or rhonchi, clear to auscultation Gastrointestinal: normoactive bowel sounds, other (soft, mildly TTP), No guarding, No rebound ICD10 Worksheet Patient Problems: Problems Problem Status Onset Dissection of thoracic aorta Active Replacement of aortic valve Active Hypertensive emergency Acute
[2017-03-11] MEDS: niCARdipine/NACL 200 ML IV SCH ×2 (14:25→21:15)
[2017-03-11] MEDS ORDERED: amLODIPine BESYLATE 5 MG TAB PO ONE (14:45)
--- NOTE | 2017-03-11 14:59 | PDINTPN ---
Regulator Inspector Progress Note Assessment/Plan: Assessment/plan: 61 M with type A aortic dissection in 2011 treated with tissue AVR for bicuspid valve and ascending aortic graft. He had poor followup and no meds then developed sudden onset CP so came to ED at insistence of family and found to have type B descending aortic dissection involving renal arteries. He was initially started on an esmolol drip followed by nipride to control BP. He was given 16 mg IV morphine in the ED over 2 hours with minimal effect on pain control, but eventually this was achieved. * Aortic dissection- type B. Started metoprolol 03/09 and uptitrated to 75 BID. Added Norvasc 03/10, but would avoid hydralazine since it can increase shear stress. Repeat CT with slight increase in false lumen and compromise of right renal artery unchanged. Medical management only remains treatment of choice. Agree with increased norvasc to dc cardene drip. * HTN- as described above * CAROLYN- improved creatinine overnight * OK for floor once off drip. 03/11/17 14:58 Subjective: c/o nausea this am but no emesis. No CP/back pain. Remains on cardene drip Objective: Vital Signs Temp Pulse Resp BP Pulse Ox 36.8 C 51 L 16 132/58 H 92 03/11/17 07:00 03/11/17 14:00 03/11/17 14:00 03/11/17 14:00 03/11/17 05:00 Laboratory Results 03/10/17 04:05 03/11/17 06:45 03/10/17 03/11/17 03/12/17 05:59 05:59 05:59 Intake Total 3998 496 Output Total 1250 1000 Balance 2748 -504 Physical Exam - Physical Exam General Appearance: WD/WN, alert, no apparent distress EENT: PERRL/EOMI Neck: supple Respiratory: lungs clear, normal breath sounds, No respiratory distress Cardiac/Chest: regular rate, rhythm, No edema Abdomen: normal bowel sounds, non-tender, soft, No distended Skin: normal color, warm/dry Lymphatic: no adenopathy Extremities: No pedal edema Neuro/Psych: alert, normal mood/affect, oriented x 3 ICD10 Worksheet Patient Problems: Problems Problem Status Onset Hypertensive emergency Acute Dissection of thoracic aorta Active Replacement of aortic valve Active
[2017-03-11] MEDS: LORazepam 1 MG TAB PO PRN (22:34)
[2017-03-12 02:56] LABS: % IMMATURE GRANULYOCYTES 0.3 % (0.0-1.1); ABSOLUTE IMMATURE GRANULOCYTES 0.03 10^3/uL (0.00-0.10); ADD DIFF? NO; ADD MORPH? NO; ADD SCAN? NO; ATYPICAL LYMPHOCYTE FLAG 0 (0-99); FRAGMENT RBC FLAG 0 (0-99); HEMATOCRIT 39.3 % (40.0-51.0); HEMOGLOBIN 13.6 g/dL (13.7-17.5); LEFT SHIFT FLG 0 (0-99); LIPEMIA HEMOLYSIS FLAG 90 (0-99); MEAN CELL HEMOGLOBIN 35.4 pg (27.9-34.1); MEAN CELL HEMOGLOBIN CONCENTR. 34.6 g/dL (32.4-36.7); MEAN CELL VOLUME 102.3 fL (81.5-99.8); MEAN PLATELET VOLUME 9.3 fL (8.7-11.7); PLATELET CLUMPS FLAG 0 (0-99); PLATELET COUNT 191 10^3/uL (150-400); RED BLOOD CELL COUNT 3.84 10^6/uL (4.40-6.38); RED CELL DISTRIBUTION WIDTH 12.7 % (11.5-15.2)
[2017-03-12 03:09] LABS: ANION GAP 8 mEq/L (8-16); CARBON DIOXIDE 27 mEq/l (22-31); CHLORIDE 103 mEq/L (97-110); CREATININE 0.9 mg/dL (0.7-1.3); GLOMERULAR FILTRATION RATE > 60; GLUCOSE 99 mg/dL (70-100); POTASSIUM 3.7 mEq/L (3.5-5.2); SODIUM 138 mEq/L (134-144)
[2017-03-12] MEDS: ONDANSETRON 4 MG/2 ML VIAL IVP PRN ×2 (03:12→19:36)
[2017-03-12] MEDS: niCARdipine/NACL 200 ML IV SCH (03:19)
[2017-03-12] MEDS: oxyCODONE IR 5 MG TAB PO PRN ×3 (03:23→19:31)
[2017-03-12] MEDS: METOPROLOL TARTRATE 50 MG TAB PO SCH ×2 (09:44→20:06)
[2017-03-12] MEDS: SENNOSIDES/DOCUSATE SODIUM TAB PO SCH ×2 (09:45→20:05)
[2017-03-12] MEDS: LORazepam 1 MG TAB PO PRN (10:17)
--- NOTE | 2017-03-12 11:30 | HOSPPROG ---
Hospitalist Progress Note Assessment/Plan: # type B aortic dissection - medical management recommended by Dr Clifton and Hank - aggressive BP control (SBP<120, HR 60-17) and tobacco cessation - cont metop 75 bid, norvasc 10, add clonidine, attempt to wean cardene - concern for R renal artery being perfused off false lumen with decreased enhancement # previous asc aortic dissection s/p surgical repair in 2011 - no medical f/u since then # htn emergency - wean cardene as needed # bicuspid aortic valve s/p porcine AVR - echo with mild/mod eccentric aortic valve insufficiency with normal gradients # CAROLYN - resolved - follow closely with renal artery compromise # short gut syndrome Subjective: wants to leave; pain controlled Objective: Vital Signs Temp Pulse Resp BP Pulse Ox 36.4 C 65 22 H 97/44 L 92 03/11/17 16:00 03/12/17 06:00 03/11/17 19:00 03/12/17 06:00 03/11/17 05:00 Laboratory Results 03/12/17 02:45 03/12/17 02:45 03/11/17 03/12/17 03/13/17 05:59 05:59 05:59 Intake Total 496 1254 Output Total 1000 300 Balance -504 954 high risk on cardene IV - Physical Exam Constitutional: no apparent distress, appears nourished Cardiovascular: regular rate and rhythym, systolic murmur, No irregularly irregular Respiratory: no respiratory distress, no rales or rhonchi, clear to auscultation Gastrointestinal: normoactive bowel sounds, soft, non-tender abdomen ICD10 Worksheet Patient Problems: Problems Problem Status Onset Dissection of thoracic aorta Active Replacement of aortic valve Active Hypertensive emergency Acute
--- NOTE | 2017-03-12 16:13 | PDINTPN ---
Drug Inspector Progress Note Assessment/Plan: Assessment/plan: 61 M with type A aortic dissection in 2011 treated with tissue AVR for bicuspid valve and ascending aortic graft. He had poor followup and no meds then developed sudden onset CP so came to ED at insistence of family and found to have type B descending aortic dissection involving renal arteries. He was initially started on an esmolol drip followed by nipride to control BP. He was given 16 mg IV morphine in the ED over 2 hours with minimal effect on pain control, but eventually this was achieved. * Aortic dissection- type B. Started metoprolol 03/09 and uptitrated to 75 BID. Added Norvasc 03/10, but would avoid hydralazine since it can increase shear stress. Repeat CT with slight increase in false lumen and compromise of right renal artery unchanged. Medical management only remains treatment of choice. Agree with increased norvasc to dc cardene drip, but added clonidine today. May have an element of anxiety resulting in increased BP. Contider outpatient eval by vascular surgery for possible endograft. * HTN- as described above * CAROLYN- improved creatinine overnight * OK for floor once off drip. Subjective: no events, though BP still challenging to control Objective: Vital Signs Temp Pulse Resp BP Pulse Ox 36.4 C 65 22 H 97/44 L 92 03/11/17 16:00 03/12/17 06:00 03/11/17 19:00 03/12/17 06:00 03/11/17 05:00 Laboratory Results 03/12/17 02:45 03/12/17 02:45 03/11/17 03/12/17 03/13/17 05:59 05:59 05:59 Intake Total 496 1254 Output Total 1000 300 Balance -504 954 Physical Exam - Physical Exam General Appearance: WD/WN, alert, no apparent distress EENT: PERRL/EOMI Neck: supple Respiratory: lungs clear, normal breath sounds, No respiratory distress Cardiac/Chest: regular rate, rhythm, No edema Abdomen: non-tender, soft, No pulsatile mass, No distended Skin: normal color, warm/dry Lymphatic: no adenopathy Extremities: No pedal edema Neuro/Psych: alert, normal mood/affect, oriented x 3 ICD10 Worksheet Patient Problems: Problems Problem Status Onset Hypertensive emergency Acute Dissection of thoracic aorta Active Replacement of aortic valve Active
--- NOTE | 2017-03-12 16:36 | ASMTCMCOM ---
CM Note CM Note Notes: Pt still not ready for d/c and may transfer to floor soon. His d/c plan is still home with no CM needs however CM will continue to follow for any change in d/c needs. Date Signed: 03/12/2017 04:36 PM Electronically Signed By:GINGER Patel
[2017-03-12] MEDS: LORazepam 1 MG TAB PO SCH (20:06)
[2017-03-13] MEDS: niCARdipine/NACL 200 ML IV SCH (00:06)
[2017-03-13 05:37] LABS: ANION GAP 6 mEq/L (8-16); CALCIUM 9.1 mg/dL (8.5-10.4); CARBON DIOXIDE 28 mEq/l (22-31); CHLORIDE 101 mEq/L (97-110); GLOMERULAR FILTRATION RATE > 60; GLUCOSE 89 mg/dL (70-100); POTASSIUM 3.9 mEq/L (3.5-5.2); SODIUM 135 mEq/L (134-144)
[2017-03-13] MEDS: METOPROLOL TARTRATE 50 MG TAB PO SCH ×2 (09:29→19:24)
[2017-03-13] MEDS: SENNOSIDES/DOCUSATE SODIUM TAB PO SCH ×2 (09:30→19:25)
[2017-03-13] MEDS: LORazepam 1 MG TAB PO SCH (09:31)
[2017-03-13] MEDS: ONDANSETRON 4 MG/2 ML VIAL IVP PRN (10:24)
--- NOTE | 2017-03-13 10:27 | HOSPPROG ---
Hospitalist Progress Note Assessment/Plan: # type B aortic dissection - medical management recommended by Dr Clifton and Hank - aggressive BP control (SBP<120, HR 60-17) and tobacco cessation - cont metop 75 bid, norvasc 10, add clonidine, attempt to wean cardene - concern for R renal artery being perfused off false lumen with decreased enhancement - avoid nephrotoxins # previous asc aortic dissection s/p surgical repair in 2011 - no medical f/u since then # transient encephalopathy - seems unlikely to be d/t clonidine - hold ativan # htn emergency - wean cardene as needed # bicuspid aortic valve s/p porcine AVR - echo with mild/mod eccentric aortic valve insufficiency with normal gradients # CAROLYN - resolved - follow closely with renal artery compromise # short gut syndrome Subjective: pain controlled; was confused overnight that seemed to be d/t clonidine Objective: Vital Signs Temp Pulse Resp BP Pulse Ox 36.7 C 59 L 14 95/47 L 90 L 03/12/17 23:00 03/13/17 09:00 03/13/17 09:00 03/13/17 09:00 03/13/17 09:00 Laboratory Results 03/12/17 02:45 03/13/17 04:50 03/12/17 03/13/17 03/14/17 05:59 05:59 05:59 Intake Total 1254 716 Output Total 300 150 Balance 954 566 high risk - Physical Exam Constitutional: no apparent distress Cardiovascular: regular rate and rhythym, systolic murmur, No irregularly irregular, No diastolic murmur Respiratory: no respiratory distress, no rales or rhonchi, clear to auscultation Gastrointestinal: normoactive bowel sounds, soft, non-tender abdomen, no palpable masses ICD10 Worksheet Patient Problems: Problems Problem Status Onset Hypertensive emergency Acute Dissection of thoracic aorta Active Replacement of aortic valve Active
--- NOTE | 2017-03-13 13:58 | PDINTPN ---
Pharmacy Data Analyst Progress Note Assessment/Plan: Assessment/plan: 61 M with type A aortic dissection in 2011 treated with tissue AVR for bicuspid valve and ascending aortic graft. He had poor followup and no meds then developed sudden onset CP so came to ED at insistence of family and found to have type B descending aortic dissection involving renal arteries. He was initially started on an esmolol drip followed by nipride to control BP. He was given 16 mg IV morphine in the ED over 2 hours with minimal effect on pain control, but eventually this was achieved. * Aortic dissection- type B. Started metoprolol 03/09 and uptitrated to 75 BID. Added Norvasc 03/10, but would avoid hydralazine since it can increase shear stress. Repeat CT with slight increase in false lumen and compromise of right renal artery unchanged. Medical management only remains treatment of choice. Resume clonidine and evaluate response. Should be close to dc nicardipine drip at this point and near ready for dc home. * HTN- as described above * CAROLYN- improved creatinine overnight * OK for floor once off drip. 03/13/17 13:53 Subjective: No complaints. Treated with ativan last pm for ?anxiety with subsequent altered MS. RN suspected clonidine so AM dose held and Nicardipine drip resumed. Objective: Vital Signs Temp Pulse Resp BP Pulse Ox 37.1 C 63 14 121/60 H 93 03/13/17 12:00 03/13/17 12:00 03/13/17 12:00 03/13/17 12:00 03/13/17 12:00 Laboratory Results 03/12/17 02:45 03/13/17 04:50 03/12/17 03/13/17 03/14/17 05:59 05:59 05:59 Intake Total 1254 716 Output Total 300 150 Balance 954 566 Physical Exam - Physical Exam General Appearance: WD/WN, alert, no apparent distress EENT: PERRL/EOMI Neck: supple Respiratory: lungs clear, normal breath sounds, No respiratory distress Cardiac/Chest: normal peripheral pulses, regular rate, rhythm, No edema Abdomen: normal bowel sounds, non-tender, soft, No distended Skin: normal color, warm/dry Lymphatic: no adenopathy Extremities: normal range of motion, No pedal edema, No swelling Neuro/Psych: alert, normal mood/affect, oriented x 3 ICD10 Worksheet Patient Problems: Problems Problem Status Onset Hypertensive emergency Acute Dissection of thoracic aorta Active Replacement of aortic valve Active
[2017-03-13] MEDS: oxyCODONE IR 5 MG TAB PO PRN ×2 (14:24→19:24)
[2017-03-13] MEDS: PROMETHAZINE HCL 25 MG/ML INJ IVP PRN (14:29)
[2017-03-14] MEDS: oxyCODONE IR 5 MG TAB PO PRN ×2 (00:36→04:25)
[2017-03-14 04:57] LABS: ANION GAP 10 mEq/L (8-16); CALCIUM 8.9 mg/dL (8.5-10.4); CARBON DIOXIDE 25 mEq/l (22-31); CHLORIDE 101 mEq/L (97-110); CREATININE 1.1 mg/dL (0.7-1.3); GLOMERULAR FILTRATION RATE > 60; GLUCOSE 94 mg/dL (70-100); SODIUM 136 mEq/L (134-144)
[2017-03-14 07:53] VITALS: BP 127/72; PULSE 77; RESP 21; TEMP 98.1; O2SAT 95
[2017-03-14] MEDS: METOPROLOL TARTRATE 50 MG TAB PO SCH (08:12)
[2017-03-14] MEDS: SENNOSIDES/DOCUSATE SODIUM TAB PO SCH (08:14)
--- NOTE | 2017-03-14 09:06 | GDS ---
[f rep st] DISCHARGE SUMMARY FINAL DIAGNOSES: 1. Type B aortic dissection. 2. History of a previous type A aortic dissection in 2012, status post surgical repair. 3. Transient encephalopathy. 4. Hypertensive emergency. 5. Bicuspid aortic valve replacement with a porcine valve. 6. Acute kidney injury. 7. Short-gut syndrome. HOSPITAL COURSE BY PROBLEM: 1. Type B aortic dissection: He has a history of a previous ascending aortic dissection that was dominguez rgically repaired in 2011. He had not seen any medical provider since then. He was markedly hyperte nsive on presentation with initial blood pressure as high as 210/75. He was treated with multiple co ntinuous infusions of antihypertensives to lower his blood pressure. He was seen by Cardiothoracic S urgery as well as evaluated by our Interventional Radiologist. Both felt that nothing was surgical a nd that medical management was appropriate. Because of this, his oral antihypertensives were uptitra [place]. He will be discharged on metoprolol 75 p.o. b.i.d., clonidine 0.2 mg t.i.d., amlodipine 10 mg d aily. He has been off intravenous antihypertensives for 24 hours, blood pressures have ranged from 9 9/58 to as high as 127/72. His goal systolic is around 120. I have counseled him extensively on the need for compliance, including ongoing strict hypertension control and to complete tobacco cessation . I recommend that he quickly establish with a primary care physician and also follow up with [facility] [place] [facility]. He has been given the phone number for the [facility] [place] [facility]. I am unsure whether he will follow up here, as he plans to move to [place] in the next few da ys. I have counseled him that I would recommend staying local for at least a month to assure stabili ty after this significant incident. He initially had severe problems with pain from this dissection; however, he has only required oral medications for the last 24 hours. I have also given him a presc ription for oxycodone #30. 2. Transient encephalopathy: This was likely due to Ativan use that he was using for ongoing anxiet y. This has been discontinued. He is alert and oriented on discharge. 3. Acute kidney injury: This was likely prerenal on his presentation. I am very concerned about hi s renal function, as the dissection flap is extending beyond the renal arteries, and it appears that the right kidney is being perfused by the false lumen. Again, recommend close vascular followup. STUDIES PENDING AT THE TIME OF DISCHARGE: None. FOLLOWUP: 1. [facility] [place] [facility]: He has been given the phone number. 2. He is to establish with a primary care physician for strict blood pressure control. BILLING: In spent more than 30 minutes on the day of discharge coordinating care. /[id number]/MODL
--- NOTE | 2017-03-14 09:58 | ASMTCMCOM ---
CM Note CM Note Notes: Patient has been discharged. He is to follow up with the [facility] [place] [facility] and establish a PCP. Date Signed: 03/14/2017 09:58 AM Electronically Signed By:Kathleen Rosario LCSW
--- NOTE | 2017-03-14 10:45 | PDINTPN ---
Footwear Sales Leader Progress Note Assessment/Plan: Assessment/plan: 61 M with type A aortic dissection in 2012 treated with tissue AVR for bicuspid valve and ascending aortic graft. He had poor followup and no meds then developed sudden onset CP so came to ED at insistence of family and found to have type B descending aortic dissection involving renal arteries. He was initially started on an esmolol drip followed by nipride to control BP. He was given 16 mg IV morphine in the ED over 2 hours with minimal effect on pain control, but eventually this was achieved. * Aortic dissection- type B. Started metoprolol 03/09 and uptitrated to 75 BID. Added Norvasc 03/10, but would avoid hydralazine since it can increase shear stress. Repeat CT with slight increase in false lumen and compromise of right renal artery unchanged. Medical management only remains treatment of choice. Controlled and off drip. Agree with dc home today * HTN- as described above * CAROLYN- improved creatinine overnight * OK for floor once off drip. 03/13/17 13:53 03/14/17 10:44 Subjective: no events Objective: Vital Signs Temp Pulse Resp BP Pulse Ox 36.7 C 77 21 H 127/72 H 95 03/14/17 07:41 03/14/17 07:41 03/14/17 07:41 03/14/17 07:41 03/14/17 07:41 Laboratory Results 03/12/17 02:45 03/14/17 04:15 03/13/17 03/14/17 03/15/17 05:59 05:59 05:59 Intake Total 716 983.5 Output Total 150 400 750 Balance 566 583.5 -750 Physical Exam - Physical Exam General Appearance: WD/WN, alert, no apparent distress EENT: PERRL/EOMI Neck: supple Respiratory: lungs clear, normal breath sounds, No respiratory distress Cardiac/Chest: regular rate, rhythm, No edema Abdomen: non-tender, soft, No distended Skin: normal color, warm/dry Lymphatic: no adenopathy Extremities: No pedal edema Neuro/Psych: alert, normal mood/affect, oriented x 3 ICD10 Worksheet Patient Problems: Problems Problem Status Onset Dissection of thoracic aorta Active Replacement of aortic valve Active Hypertensive emergency Acute
--- NOTE | 2017-03-15 16:13 | ASDISCHSUM ---
Discharge Information Plan Status:Home with No Needs Medically Cleared to Leave:03/14/2017 Discharge Date:03/14/2017 09:46 AM CM D/C Disposition:Home, Routine, Self-Care ADT D/C Disposition:Home, Routine, Self-Care Projected Discharge Date:03/14/2017 10:00 AM Transportation at D/C:Friend Discharge Delay Reason: Follow-Up Date:03/14/2017 10:00 AM Discharge Slot:1 - 8:01 am - 12:00 noon Final Diagnosis:Type B aortic dissection Placement Information Patient Contact Information Contact Name:COSTANATANTOINETTE Relationship:Other Address:[address] [place] [address] Work Phone: [facility]:[place] Alternate Phone: [facility]/Zip Code:[place] [address] Email: Financial Information Financial Class:Self-Pay Primary Plan Desc:SELF PAY Primary Plan Number: Secondary Plan Desc: Secondary Plan Number: Assessment Information [facility] CM Progress Note CM Note CM Note Notes: Patient admitted for changes in his type B aortic dissection. He is being followed by cardiology who recommend medication changes (patient has historically been non-compliant). Patient is eager to d/c and has been cleared by Pt/OT. CM available for any discharge needs. Date Signed: 03/09/2017 02:38 PM Electronically Signed By:Reina Lyons RN [facility] CM Progress Note CM Note CM Note Notes: Pt still not ready for d/c and may transfer to floor soon. His d/c plan is still home with no CM needs however CM will continue to follow for any change in d/c needs. Date Signed: 03/12/2017 04:36 PM Electronically Signed By:Ml Cole, MAIL OFFICER [facility] CM Progress Note CM Note CM Note Notes: Patient has been discharged. He is to follow up with the [facility] [place] [facility] and establish a PCP. Date Signed: 03/14/2017 09:58 AM Electronically Signed By:Kathleen Rosario LCSW Intervention Information
== END 2017-03-14 09:46 | disposition home or self-care (01) | DRG 299 ==
LOC: F2N 17:05
PROVIDERS: ADMIT Internal Medicine; ATTEND Student in an Organized Health Care Education/Training Program
DX: I71.01 Dissection of thoracic aorta (principal); I16.1 Hypertensive emergency; G92 Toxic encephalopathy; T42.4X5A Adverse effect of benzodiazepines, initial encounter; N17.9 Acute kidney failure, unspecified; E87.6 Hypokalemia; Z95.1 Presence of aortocoronary bypass graft; F17.210 Nicotine dependence, cigarettes, uncomplicated
CPT/HCPCS: 82947-QW; 96374; 97161-GP; 97165-GO; 97530-GO; J0360; J2405; J2550; Q9967